=== PATIENT | male | born 1960 | race Caucasian/White ===

== ENCOUNTER → 2017-04-19 | Outpatient (CLI) | payer MEDICAID ==
[~2017-04-19] MED LIST: ALBUTEROL2 PUFFS/17 IN; AMITRIPTYLINE H75 MG PO; ASPIRIN 81MG TA81 MG PO; GABAPENTIN100 M1 PO; HYDROCODONE/ACE1 TA5 PO; LIPITOR80 MG PO; LISINOPRIL 10MG10 MG PO; MEDROL 4MG. DOSE4 MG PO; NORCO 325 MG-51 TAB PO; ZITHROMAX Z PA250 MG PO
[2017-04-19 13:50] LABS: BUN 16 mg/dL (7-18)
[2017-04-19 13:51] LABS: GFR (ESTIMATED) 69 ML/MIN (>60)
== END ==
LOC: LAB 13:03
PROVIDERS: Emergency Medicine
DX: I10 Essential (primary) hypertension (principal)

== ENCOUNTER → 2017-04-24 | Outpatient (CLI) | payer MEDICAID | LOC: LAB 13:08 | DX: R73.09 Other abnormal glucose (principal) ==